=== PATIENT | male | born 1985 | race Two or more races ===

== ENCOUNTER 2022-08-31 14:35 | Emergency (ER) | payer OTHER ==
[~2022-08-31] VITALS: Ht 175.3 cm; Wt 77.1 kg
[2022-08-31] MEDS ORDERED: RELAFEN DS1000 MG (14:45)
== END 2022-08-31 16:10 | disposition home or self-care (01) ==
LOC: ER 14:35
DX: M51.26 Other intervertebral disc displacement, lumbar region (principal)